=== PATIENT | female | born 1960 | race Caucasian/White ===

== ENCOUNTER 2024-07-08 14:23 | Emergency (ER) | payer MEDICAID ==
[2024-07-08] MEDS ORDERED: Azithromycin 250 MG Tab ONE (16:00)
[2024-07-08 16:07] LABS: INFLUENZA A NAA NEGATIVE (NEGATIVE); INFLUENZA B NAA NEGATIVE (NEGATIVE); RESPIRATORY SYNCYTIAL VIR NAA NEGATIVE (NEGATIVE)
[2024-07-08 16:10] LABS: CORONAVIRUS COVID-19 NAA NEGATIVE (NEGATIVE)
== END 2024-07-08 17:00 | disposition home or self-care (01) ==
LOC: LB.ED 14:23
DX: R05.9 Cough, unspecified (principal); R09.81 Nasal congestion; R51.9 Headache, unspecified; Z88.2 Allergy status to sulfonamides; Z88.6 Allergy status to analgesic agent; Z88.8 Allergy status to other drugs, medicaments and biological substances; Z79.899 Other long term (current) drug therapy; Z90.710 Acquired absence of both cervix and uterus
CPT/HCPCS: 0241U; 71045; 87651; 99284; A9270-GY

== ENCOUNTER 2024-07-21 13:31 | Emergency (ER) | payer MEDICAID ==
[2024-07-21] MEDS ORDERED: Sodium Chloride 0.9% 10 ML Syringe FLUSH PRN (13:55)
[2024-07-21] MEDS: Sodium Chloride 0.9% 1,000 ML IV SCH ×3 (14:05→19:30)
[2024-07-21 14:32] LABS: HEMATOCRIT 31.5 % (37.0-47.0); HEMOGLOBIN 9.9 g/dL (11.5-16.5); MEAN CORPUSCULAR HEMOGLOBIN 29.1 pg (27.0-32.0); MEAN CORPUSCULAR HGB CONC 31.4 g/dL (31.0-35.0); MEAN PLATELET VOLUME 11.1 fL (6.0-10.0); RED BLOOD CELL COUNT 3.4 M/uL (3.80-5.80); RED CELL DISTRIBUTION WIDTH 14.9 % (11.0-16.0); WHITE BLOOD CELL COUNT,WBC 13.9 K/uL (4.0-11.0)
[2024-07-21 14:46] LABS: ALBUMIN 3.7 g/dL (3.4-5.0); BILIRUBIN TOTAL 1.3 mg/dL (0.0-1.0); BUN/CREATININE RATIO 7.7 (6-25); CALCIUM 8.8 mg/dL (8.5-10.1); EST CRCL DRUG DOSING (CG) 3.93 mL/min; MAGNESIUM 2.3 mg/dL (1.8-2.4); PROTEIN TOTAL,TP 7.5 g/dL (6.4-8.2); TROPONIN I HIGH SENSITIVITY 5.3 pg/ml (<=60.4)
[2024-07-21 14:49] LABS: ANION GAP 27.2 mmol/L (5.0-15.0); CARBON DIOXIDE,CO2 13.3 mmol/L (21.0-32.0); POTASSIUM,K 6.5 mmol/L (3.5-5.1)
[2024-07-21 14:50] LABS: CREATININE 13.18 mg/dL (0.55-1.02)
[2024-07-21] MEDS ORDERED: Glucagon,Human Recombinant 1 MG Vial IM PRN (14:53)
[2024-07-21] MEDS ORDERED: 50% Dextrose in Water 50 ML Syringe IVPUSH PRN (14:53)
[2024-07-21] MEDS ORDERED: Sodium Chloride 0.9% 1,000 ML IV SCH (15:00)
[2024-07-21] MEDS: Albuterol 0.083% 2.5 MG/3 ML Neb Soln NEB ONE (15:16)
[2024-07-21 15:17] LABS: LACTIC ACID 0.7 mmol/L (0.4-2.0)
[2024-07-21] MEDS: Lactated Ringers 1,000 ML IV SCH (15:18)
[2024-07-21] MEDS: Calcium Gluconate 10% 1 GM/10 ML SDV IVPUSH ONE ×2 (15:19→18:38)
[2024-07-21] MEDS: 50% Dextrose in Water 50 ML Syringe IVPUSH ONE (15:24)
[2024-07-21] MEDS: Albuterol 0.083% 2.5 MG/3 ML Neb Soln ONE (15:37)
[2024-07-21] MEDS: Sodium Bicarbonate 100 MEQ in Dextrose 5% in Water 100 ML IV ONE (15:39)
[2024-07-21] MEDS: Insulin Regular, Human 100 Units/ML 10 ML Vial IVPUSH ONE (15:51)
[2024-07-21] MEDS: Sodium Zirconium Cyclosilicate 5 GM Packet PO SCH (16:07)
[2024-07-21] MEDS: Morphine 4 MG/ML VIAL IVPUSH ONE ×2 (16:39→17:06)
[2024-07-21 16:49] LABS: ANION GAP 24.5 mmol/L (5.0-15.0); BUN/CREATININE RATIO 8.7 (6-25); CALCIUM 8.6 mg/dL (8.5-10.1); EST CRCL DRUG DOSING (CG) 4.52 mL/min; POTASSIUM,K 5.6 mmol/L (3.5-5.1)
[2024-07-21 16:56] LABS: CARBON DIOXIDE,CO2 13.1 mmol/L (21.0-32.0)
[2024-07-21 16:57] LABS: CREATININE 11.47 mg/dL (0.55-1.02)
[2024-07-21] MEDS: Sodium Bicarbonate 8.4% 50 MEQ/50 ML Syringe IVPUSH ONE (17:07)
[2024-07-21] MEDS: Furosemide 40 MG/4 ML VIAL IVPUSH ONE (17:50)
[2024-07-21] MEDS: Sodium Polystyrene Sulfonate 15 GM/60 ML Susp 60 ML Bot PO ONE (17:51)
[2024-07-21] MEDS ORDERED: Norepinephrine Bit/0.9 % NaCl 4 MG in Premix Bag 1 BAG IV SCH (19:00)
[2024-07-21 19:33] LABS: BILIRUBIN,URINE NEGATIVE (NEGATIVE); COLOR,URINE YELLOW; GLUCOSE,URINE NEGATIVE (NEGATIVE); KETONES,URINE NEGATIVE (NEGATIVE); LEUKOCYTE ESTERASE,URINE NEGATIVE (NEGATIVE); NITRITE,URINE NEGATIVE (NEGATIVE); OCCULT BLOOD,URINE MODERATE (NEGATIVE); PROTEIN,URINE 30 mg/dL (NEGATIVE); UROBILINOGEN,URINE 0.2 E.U./dL (0.2-1.0)
[2024-07-21 19:41] LABS: APPEARANCE,URINE SLIGHTLY CLOUDY (CLEAR)
[2024-07-21 19:42] LABS: SQUAMOUS EPITHELIAL CELLS,UR OCCASIONAL /HPF; WBC,URINE 0-5 /HPF
[2024-07-21 19:43] LABS: AMORPHOUS SEDIMENT,URINE FEW /HPF
[2024-07-21] MEDS ORDERED: Sodium Zirconium Cyclosilicate 5 GM Packet PO SCH (20:00)
[2024-07-21 20:31] LABS: ANION GAP 19.8 mmol/L (5.0-15.0); BUN/CREATININE RATIO 9.4 (6-25); CALCIUM 8.4 mg/dL (8.5-10.1); CARBON DIOXIDE,CO2 17.4 mmol/L (21.0-32.0); EST CRCL DRUG DOSING (CG) 5.73 mL/min; POTASSIUM,K 4.2 mmol/L (3.5-5.1)
[2024-07-21 20:34] LABS: CREATININE 9.04 mg/dL (0.55-1.02)
[2024-07-21 21:09] LABS: BASE EXCESS VENOUS -12.6 mm/L (-2-3); PCO2 VENOUS 34.9 mm/Hg (41-51); PH,VENOUS 7.24 (7.31-7.41)
[2024-07-21] MEDS: Norepinephrine Bit/0.9 % NaCl 4 MG in Premix Bag 1 BAG IV SCH (21:09)
[2024-07-21] MEDS: VANCOmycin 1 GM in Sodium Chloride 0.9% 250 ML IV SCH (21:19)
[2024-07-21] MEDS: Piperacillin/Tazobactam 4.5 GM in Sodium Chloride 0.9% 100 ML IV ONE (21:40)
[2024-07-21 21:51] LABS: INFLUENZA A NAA NEGATIVE (NEGATIVE); INFLUENZA B NAA NEGATIVE (NEGATIVE); RESPIRATORY SYNCYTIAL VIR NAA NEGATIVE (NEGATIVE)
[2024-07-21 21:59] LABS: CORONAVIRUS COVID-19 NAA NEGATIVE (NEGATIVE)
[2024-07-22 01:45] LABS: BASOPHILS PERCENT AUTO 0.2 % (0.0-0.5); EOSINOPHILS PERCENT AUTO 2.5 % (1.0-5.0); HEMATOCRIT 25.8 % (37.0-47.0); HEMOGLOBIN 8.3 g/dL (11.5-16.5); LYMPHOCYTES ABSOLUTE AUTO 1.15 K/uL (1.50-4.00); LYMPHOCYTES PERCENT AUTO 13.1 % (20.0-40.0); MEAN CORPUSCULAR HEMOGLOBIN 29.5 pg (27.0-32.0); MEAN CORPUSCULAR HGB CONC 32.2 g/dL (31.0-35.0); MEAN CORPUSCULAR VOLUME 92 fL (76-96); MEAN PLATELET VOLUME 10.7 fL (6.0-10.0); MONOCYTES ABSOLUTE AUTO 1.11 K/uL (0.20-0.80); MONOCYTES PERCENT AUTO 12.6 % (3.0-10.0); NEUTROPHILS PERCENT AUTO 71.6 % (45.0-70.0); PLATELET COUNT,PLT 169 K/uL (150-500); RED BLOOD CELL COUNT 2.81 M/uL (3.80-5.80); RED CELL DISTRIBUTION WIDTH 14.6 % (11.0-16.0); WHITE BLOOD CELL COUNT,WBC 8.8 K/uL (4.0-11.0)
[2024-07-22 01:46] LABS: BASOPHILS ABSOLUTE AUTO 0.02 K/uL (0.02-0.10); EOSINOPHILS ABSOLUTE AUTO 0.22 K/uL (0.04-0.40)
[2024-07-22 02:05] LABS: ANION GAP 18.6 mmol/L (5.0-15.0); BUN/CREATININE RATIO 10.8 (6-25); CALCIUM 8.2 mg/dL (8.5-10.1); CARBON DIOXIDE,CO2 19.3 mmol/L (21.0-32.0); EST CRCL DRUG DOSING (CG) 7.47 mL/min; MAGNESIUM 1.7 mg/dL (1.8-2.4); POTASSIUM,K 3.9 mmol/L (3.5-5.1); TROPONIN I HIGH SENSITIVITY 25.7 pg/ml (<=60.4)
[2024-07-22 02:08] LABS: CREATININE 6.94 mg/dL (0.55-1.02)
[2024-07-22 04:19] VITALS: BP 128/61; PULSE 97
[2024-08-08 13:56] LABS: BICARBONATE,VENOUS 14.8 mmol/L (23.0-28.0)
== END 2024-07-22 04:08 ==
LOC: LB.ED 13:31
DX: N17.9 Acute kidney failure, unspecified (principal); E86.0 Dehydration; E87.5 Hyperkalemia; E87.29 Other acidosis; G93.49 Other encephalopathy; R57.1 Hypovolemic shock; E78.00 Pure hypercholesterolemia, unspecified; I10 Essential (primary) hypertension; E11.9 Type 2 diabetes mellitus without complications; Z88.0 Allergy status to penicillin; Z91.040 Latex allergy status; Z88.2 Allergy status to sulfonamides; Z88.8 Allergy status to other drugs, medicaments and biological substances; Z88.4 Allergy status to anesthetic agent; Z88.5 Allergy status to narcotic agent; Z79.899 Other long term (current) drug therapy; Z79.4 Long term (current) use of insulin
CPT/HCPCS: 0241U; 36415; 51702; 71045; 71250; 74176; 80048; 80053; 81001; 82803; 83605; 83735; 83880; 84484; 85025; 85027; 85379; 87040; 93005; 93010; 96361; 96365; 96366; 96367; 96375; 96376; 99285; 99285-25; A0425; A0428; A9270-GY; J0612; J1938; J2270; J2543; J3370; J3490; J7030; J7050; J7120